=== PATIENT | male | born 1990 | race Caucasian/White ===

== ENCOUNTER 2016-06-17 08:34 | Day surgery (SDC) | payer OTHER, MEDICARE ==
[~2016-06-17] VITALS: Ht 180.3 cm; Wt 75.0 kg
--- NOTE | 2016-06-17 07:09 | PCM.HPANE ---
Patient Data Surgeon Admitting Provider: Attending Provider:Tricia Horton MD Primary Care Physician:Ernst Other Provider:Jemma Hollis Anesthesia Reason for Visit Dysphagia Ht/WT & BMI Body Mass Index Allergies Coded Allergies: No Known Allergies (Unverified Allergy, Unknown, 08/16/13) Diabetes History Hx Diabetes?: No Medications Discontinued Reported Medications Omeprazole 20 Mg Tablet.dr20 Mg PO DAILY 06/16/16 Discontinued Scripts Haloperidol Decanoate (Haldol Decanoate 100)100 Mg/1 Ml [id number] Mg IM UD antipsychotic #1 Ref 0 Haldol Decanoate IM Injection q 30 days. Prov:Byron Aguilar MD 09/03/13 Melatonin 1 Mg Tablet3 Mg PO HS PRN sleep 30 Days Prov:Byron Aguilar MD 09/03/13 [Benztropine Mesylate] (Cogentin)1 MG TABLET No Conflict Check1 Mg PO BID PRN AKATHESIA/MUSCLE RIGIDITY 30 Days Prov:Byron Aguilar MD 09/03/13 History Cardiovascular History: Denies:: Congestive Heart Failure Hypertension Respiratory History: Denies:: Tuberculosis Psycho Social History: Positive for:: Bipolar Disorder Hx Depression Denies:: Anxiety Suicide Attempt Hx Surgeries?: No Hx Diabetes: No Hx Alcohol Use: Yes ("OCCAS")Hx Substance Use: YesHave You Smoked inLast 12 mo : No Stop/Bang Risk Assessment Category Category 1A: Patient has history of documented sleep apnea, and HAS NOT received any narcotic, sedative or anesthesia administration during this stay. Category 1B: Patient has history of documented sleep apnea, and HAS received any narcotic , sedative or anesthesia administration during this stay Category 2: Patient has SUSPECTED Obstructive Sleep Apnea, and HAS received any narcotic , sedative or anesthesia administration during this stay. Category 3: Patient has SUSPECTED Obstructive Sleep Apnea and HAS NOT received narcotic, sedative or anesthesia administration during this stay. Category 4: Outpatient in Procedural Areas with known sleep apnea or who screen positive for High Risk via the STOP/BANG questionnaire. Exam Exam General Appearance: Alert, Oriented X3, Cooperative, No Acute Distress HEENT/AIRWAY: MP 2 Lungs: Clear to Auscultation, Normal Air Movement Heart: Exam Unremarkable, Regular Rate/Rhythm, No Murmurs/Rubs/Gallops Plan Impression Patient chart reviewed, patient interviewed and anesthestic plan with risks, benefits, and alternatives discussed, and informed consent obtained. ASA Physical Status: ASA2 Mod Systemic Disease Anesthetic Plan: MAC Bene/Risks/Altern/Consents: Yes HP Complete Prior to Induction: Yes Sona Gallardo MD Jun 17, 2016 07:09
[~2016-06-17 08:34] MED LIST: Benztropine Mesylate PO; HALO100A2 IM; Lactated Ringer's 1,000 ML IV ONE; MELA1TAB9 PO; OMEP20TA86 PO
[2016-06-17] MEDS ORDERED: Propofol 10,000 mCg/mL 20 mL Inj ONE (08:35)
[2016-06-17] MEDS ORDERED: fentaNYL-PF 50 mCg/mL 2 mL Inj ONE (08:35)
[2016-06-17 09:50] VITALS: BP 121/83; PULSE 65; RESP 12; O2SAT 99
[2016-06-17] MEDS ORDERED: Lactated Ringer's 1,000 ML IV SCH (11:12)
--- NOTE | 2016-06-17 11:12 | PCM.ANEP1 ---
Post Anesthesia Phase 1 PACU Phase 1 Assessment Vital Signs Vital Signs Date Time Temp Pulse Resp B/P Pulse Ox O2 Delivery O2 Flow Rate FiO2 06/17/16 09:50 65 12 121/83 99 Room Air Anesthetic Administered: MAC Level of Alertness: Awake, talking MORELAND's with Equal Strength: Yes Pain: No Oxygen Delivery: Nasal Cannula Lungs: Clear to Auscultation, Normal Air Movement Sona Gallardo MD Jun 17, 2016 11:12
[2016-06-17 11:14] VITALS: BP 124/69; PULSE 77; RESP 14; O2SAT 96
[2016-06-17] MEDS ORDERED: MetoCLOpramide 5 mg/mL 2 mL Inj IVPUSH PRN (11:15)
[2016-06-17] MEDS ORDERED: Ondansetron 2 mg/mL 2 mL Inj IVPUSH PRN (11:15)
--- NOTE | 2016-06-17 11:17 | PCM.ANEP2 ---
Post Anesthesia Evaluation ASA/CMS Post Anesthesia VS in Patient's Normal Range?: Yes Resp Stable; Airway Patent?: Yes CV Function & Hydration Stable: Yes Mental Status Recovered?: Yes Pain control Satisfactory?: Yes N/V Control Satisfactory?: Yes Sona Gallardo MD Jun 17, 2016 11:17
[2016-06-17 11:24] VITALS: BP 109/66; PULSE 85; RESP 16; O2SAT 96
--- NOTE | 2016-06-17 14:04 | ENDO ---
[address] [address] ENDOSCOPY PROCEDURE PATIENT: FARRAH HENAO : 1990 MR#: [id number] ADMIT: 06/17/2016 JOB ID: [id number] DATE: 06/17/2016 PROCEDURE: Esophagogastroduodenoscopy. INDICATION: Dysphagia. Patient's ASA classification, Mallampati score, and medications as per anesthesia note. INSTRUMENT USED: [id number]. PROCEDURE DETAILS: After informed consent was obtained, the patient was brought into the GI suite where he was placed on oxygen via nasal cannula and monitored with continuous pulse oximeter, telemetry, and blood pressure monitoring. A time-out was performed. Then, he was placed in a left lateral decubitus position and a bite block was placed. Medications were then administered for sedation. The standard esophagogastroduodenoscopy scope was inserted through the bite block and advanced under direct visualization to the second portion of duodenum without difficulty. FINDINGS: 1. In the duodenum, the mucosa had a slightly scalloped appearance suggestive of celiac disease. Multiple random biopsies were obtained. 2. Normal-appearing pylorus, antrum, and gastric body. 3. Retroflexed views of the gastric body revealed a normal-appearing cardia and fundus. 4. Normal-appearing GE junction with a regular Z-line at 42 cm. 5. Normal-appearing esophagus. 6. Multiple random biopsies were obtained in midesophagus secondary to patient's complaint of dysphagia. IMPRESSION: 1. Slightly irregular duodenal mucosa. Biopsies obtained to rule out celiac disease. 2. Otherwise normal exam. RECOMMENDATIONS: 1. Continue current medications. 2. Follow up in GI clinic in 2-4 weeks. COMPLICATIONS: None. ESTIMATED BLOOD LOSS: Less than 5 mL.
--- NOTE | 2016-06-18 15:45 | PATH ---
SURGICAL PATHOLOGY Attending Physician:Rodo Rene CASE STATUS: Signed Out PATIENT NAME: FARRAH HENAO PID: [id number] : 1990 DATE COLLECTED:06/17/2016 20:04 SPECIMEN: 1: Duodenum, Biopsy 2: Esophagus, Biopsy CLINICAL HISTORY: 1). DUODENUM BIOPSY 2). MID ESOPHAGEAL BIOPSY FINAL DIAGNOSIS: 1. Duodenum Biopsy: Duodenal mucosa with no diagnostic alterations. Negative for inflammation, celiac, dysplasia and malignancy. 2. Mid-esophageal Biopsy: Esophageal squamous mucosa with no diagnostic alterations. Negative for intestinal/Hickman's metaplasia. Negative for dysplasia and malignancy. ICD10 R10.13 GROSS DESCRIPTION: The specimen is received in two formalin filled containers labeled with the patient's name. 1). The specimen is sublabeled "duodenum" and consists of 5 portions of tissue which aggregate to 0.4 x 0.4 x 0.3 CM. The specimen is entirely submitted in cassette 1A. 2). The specimen is sublabeled "mid esophageal" and consists of 3 portions of tissue which aggregate to 0.3 x 0.3 x 0.2 CM. The specimen is entirely submitted in cassette 2A. 06/17/2016 [facility] MICRO DESCRIPTION: Please see diagnosis. ICD-9 CODES: CPT CODES: 1: 29389 2: 30959 Electronically Signed Out Juliet Grant MD [facility] [address], [place] [address] Technical component performed at [facility], [address], [place], [address]
== END 2016-06-17 23:59 | disposition home or self-care (01) ==
LOC: END 08:34
PROVIDERS: ATTEND Internal Medicine Gastroenterology
DX: R13.10 Dysphagia, unspecified (principal); K31.89 Other diseases of stomach and duodenum; K59.00 Constipation, unspecified; F25.9 Schizoaffective disorder, unspecified; K21.9 Gastro-esophageal reflux disease without esophagitis; F10.20 Alcohol dependence, uncomplicated; F17.210 Nicotine dependence, cigarettes, uncomplicated
CPT/HCPCS: 43239; J2250; J3010; J7120

== ENCOUNTER 2016-11-26 00:09 | Inpatient (IN) | payer MEDICARE, OTHER ==
[~2016-11-26] VITALS: Ht 182.9 cm; Wt 70.0 kg
[2016-11-26 00:20] VITALS: BP 128/77; PULSE 115; RESP 16; O2SAT 96
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
[2016-11-26] MEDS ORDERED: Haloperidol 5 mg/mL Inj ONE (04:22)
[2016-11-26 05:26] LABS: BASOPHILS % (AUTO) 0.1 % (0-3); EOSINOPHILS % (AUTO) 1.6 % (0-5); MONOCYTES % (AUTO) 10.6 % (4-12); Mean Corpuscular Hemoglobin 30.6 pg (27.0-35.0); Mean Corpuscular Volume 86.2 fL (81-100); NEUTROPHILS % (AUTO) 69.5 % (40-74); Platelet Count 215 bil/L (150-400)
[2016-11-26 06:34] VITALS: BP 130/79; PULSE 125; RESP 14; O2SAT 96
[2016-11-26 15:45] VITALS: BP 126/72; PULSE 89; RESP 12; O2SAT 98
[2016-11-26] MEDS ORDERED: Alum-Mag Hydrox-Simeth 30 mL Suspension PO PRN (16:45)
[2016-11-26] MEDS ORDERED: LORazepam 1 mg Tablet PO PRN (16:45)
[2016-11-26] MEDS ORDERED: Benzocaine-Menthol Lozenge 2/Pkg PO PRN (16:45)
[2016-11-26] MEDS ORDERED: Magnesium Hydroxide 10 mL Oral Concentration PO PRN (16:45)
--- NOTE | 2016-11-26 18:19 | NUR ---
[facility] Day Shift Pt admitted to the unit at approx 16:00. Pt declined to complete the admission paperwork, but has been directable and appropriate with staff and peers since admission. Pt spends most of the shift pacing the unit, attempting to engage in unit activities, and resting in his room. Pt is pleasant and appropriate with staff and peers when engaged. Pt occasionally appears guarded when engaged with staff. Pt attended dinner in the evening and ate approx 100% of meal.
--- NOTE | 2016-11-26 21:07 | NUR ---
ADMISSION NOTE 26 y/o male w/hx schizoaffective disorder admitted to unit @ 1600 from [facility] ED, SUMI'd on 72-hr hold. Pt. was calm but guarded and refused to participate in admission interview or signing his paperwork, telling this music writer "I'm gonna go take a shit if that's ok with you. I'm not doing this." Pt. wrote the statement "I do not want to be treated" on his consent to treat form. However, he was med compliant at and took his scheduled Haldol 5 mg and Cogentin 1 mg. Per ED records, the pt's father reported the pt. has been off his meds for "a long time" and was acting bizarrely and belligerent in the home that they share and was brought here by police. He apparently made suicidal statements to the police but has denied SI here at the hospital. Down in the ED, the pt. required seclusion b/c of risk of elopement and then later 4-point restraints d/t escalating behaviors and property destruction. The pt. has had at least 3 previous ITAs with his last admission here in August 2013. Pt's father reported the pt. has done well on Haldol in the past. Pt. denied pain, denied AH/VH/SI/HI.
--- NOTE | 2016-11-27 05:01 | NUR ---
NURSE NIGHT NOTE [id number]: Pt was in bed at the start of the shift, but got up a couple times in the night. Pt was appropriate when talking to staff. Pt monitored q15 minutes for location, safety and accountability.
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
[2016-11-27 16:22] VITALS: BP 119/74; PULSE 83; RESP 16
--- NOTE | 2016-11-27 16:44 | NUR ---
[id number]. nurs. S: "I think if I go off haldol I can go 'bonkers'" O: Pt out on unit reporting tired but able to find things to do on unit and rest. Pt reporting living at home with family but wants to find his own place, pt reporting that situation at home precip. admit had occurred because his family were not helping him to find some friends he was worried about who were missing, homeless and camping out. 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 Pt appearing to have some insight into benefit of being on medication although not clearly acknowleging pxs he has experienced with his functioning. Pt taking meds as prescribed. P:CNCP
--- NOTE | 2016-11-27 18:08 | NUR ---
Legislative Analyst/Counselor S:"I'm here because I didn't feel safe." O: Patient denies any SI or HI, no AVH, rated his anxiety at at 2, and his depression at a 1. A: Patient is cordial and pleasant. Limited insight. Participated in group, and has been interactive on the unit. P: Follow care plans and coordinate with outpatient providers.
--- NOTE | 2016-11-27 18:16 | NUR ---
[facility] Day Shift Pt maintained behavioral control throughout the shift. Pt affect appears mostly euthymic, occasionally guarded. Pt spends most of the shift looking for ways to stay occupied, interacting lightly with staff and peers, and pacing the unit. Pt occasionally appears restless. Pt is pleasant with staff and peers when active on the unit. Pt attended community meeting in the AM and lightly participated in group activities throughout the shift. Pt attended all meals and ate approx 100% of all meals.
--- NOTE | 2016-11-28 05:40 | NUR ---
Nursing Noc Patient taking medications as directed, but noted to be hesitant to accept PRNs available for sleep. Pt out after short perios to request sleep aid. Pt noted to have broken sleep. Pleasant cooperative and interacting appropriately with staff and patients. Continuing to monitor mood, behavior, and emotional state. Q15 minutes safety checks performed throughout the night.
--- NOTE | 2016-11-28 12:22 | NUR ---
[id number]. nurs. S: "I have drowsiness do you think that will wear off.. 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 Pt reporting that he had positive visit with mo. and bro. last night. Pt reporting that he hoped to be able to discharge tomorrow and get back to work. Pt stating he would talk to Dr about drowsy state and possible duration of this s/e. Pt reporting in addition to not being able to smoke he liked to be active and did not like sitting around. MHA stating that he would offer ball sports in afternoon. A: Pt pleasant, with calm controlled behaviour, without much interaction with others and some ambivalence re need and benefits of meds. desiring discharge, to discuss med regimen with . Pt states has good plan of taking meds when alarm wakes him for work. P:CNCP
--- NOTE | 2016-11-28 13:55 | PCM.PNPSY ---
Subjective Date of Service Nov 28, 2016 Subjective I spent 30 minutes both reviewing treatment plan with our clinical team, interviewing the patient and providing supportive/educational psychotherapy. I spent more than 50% of the time counseling the patient. I reviewed the treatment plan with the him and discussed options available including the potential risks, benefits and side effects. Chauncey reports a marked improvement in thought organization and mood stability. Staff reports that he has been active and participating well in one-to-one unit and group activities. He slept 6 hours and denies depression or psychotic symptoms review. He denies medication side effects. He was able to identify his medications and what they were used to treat. Current Medications Current Medications Benztropine Mesylate 1 mg BID PO Last administered on 11/28/16 07:52; Admin Dose 1 MG; Start 11/26/16 at 20:30 Haloperidol 5 mg BID PO Last administered on 11/28/16 07:52; Admin Dose 5 MG; Start 11/26/16 at 20:30 Haloperidol 5 mg ONCE ONCE PO Last administered on 11/26/16 14:34; Admin Dose 5 MG; Start 11/26/16 at 14:00; Stop 11/26/16 at 14:01; Status DC Zolpidem Tartrate Start with 5 mg and july rep... HS PRN PO Last administered on 11/27/16 22:09; Admin Dose 5 MG; Start 11/26/16 at 16:45 Mental Status Exam Appearance: Neat/well groomed Attitude: Pleasant, Cooperative Behavior: No unusual behavior Affect: Well Modulated/Appropriate Mood: Euthymic Thought Process/Associations: Logical/Sequential, Goal Directed Speech Production: Normal Speech Rate: Normal Speech Articulation: Normal Thought Content: Appropriate Danger to Self/Suicidal Ideati: None Danger to Others: None Consciousness: Alert Orientation: Person, Place, Date, Situation Memory: Grossly Intact Estimate Intellectual Function: Average Basis for IQ estimate: Awareness current events, Word use/vocabulary, Educational history, Employment history Attention/Concentration & Cogn: Grossly Intact Cognitive Testing Method: Abstract Reasoning during interview, Proverb interpretation, Serial computations, Spelling forward & backward Insight: Good Judgement: Limited Result Diagram: 11/26/1651611/26/16516 Mental Health Plan The patient is a 26-year-old, white male, who has been struggling with symptoms of schizoaffective disorder, both chicho symptoms and psychotic symptoms, for the past five years. He has been off medications since January 2016 and states Haldol was really what has been helping him. He did not want to start a mood stabilizer nor refrain from recreational drugs such as THC. The reports that prior to admission to our unit was that he was delusional, nonsensical, responding to internal stimuli, and hallucinating. He received involuntary neuroleptics in the emergency department and is currently taking Haldol 5 mg twice a day. Client is gainfully employed and very proud of this fact. He has a close-knit and supportive family. He is a very proud young man and wants to be stabilized and discharged as soon as possible. Today he appeared with good thought organization And is showing markedly improved judgment and impulse control. [place] I. Schizoaffective disorder. [place] II. Defer. [place] III. None. [place] IV. Moderate. [place] V. Current Global Assessment of Functioning equal to 40 Treatments Patient is being provided with a high degree of safety through our unit structure and active adult engagement provided by our mental health professionals, mental health technicians, psychiatric nurses and myself. We are focusing on developing improved coping skills and identifying stressors that may have led to current episode. We will attempt to: * Integrate into therapeutic groups, milieu and individual therapy. * Maintain in a closely monitored and structured unit * Provide low-stimulation environment * Obtain collateral data to assist in treatment planning * Assess degree of lability of affect and impulse control * Complete safety plan * Decrease frequency of relapse and need for re-hospitalization * Denies thoughts of harm to self and/or others * Establish a consistent sleep pattern * Medication effective in stabilization of mood and/or thought process * Reduce the risk of imminent harm to self and/or others by providing a safe environment * Tolerates medication without side effects Patient will be on the following psychiatric medications: Haldol 5 mg twice a day Cogentin 1 mg twice a day Education: Educate patient about recreational drug use as an etiology Educate about metabolic etiologies related to obesity Patient's legal status Patient is on a 72 involuntary treatment hold. Patient will be given the opportunity to talk to her heel seam rubber and the library science professor Anticipated number of hospital days to achieve above goals: 3 Disposition: Home Jose M Tidwell MD Nov 28, 2016 13:55
[2016-11-28 16:36] VITALS: BP 121/71; PULSE 66; RESP 16
--- NOTE | 2016-11-28 17:52 | NUR ---
[facility] Day Shift Pt affect and behavior unchanged from previous shifts. Pt maintained behavioral control throughout the shift. Pt affect appears mostly euthymic, occasionally guarded. Pt spends most of the shift looking for ways to stay occupied, interacting lightly with staff and peers, and pacing the unit. Pt occasionally appears restless. Pt is pleasant with staff and peers when active on the unit. Pt attended community meeting in the AM and participated in group activities throughout the shift. Pt attended all meals and ate approx 100% of all meals.
--- NOTE | 2016-11-28 18:07 | NUR ---
Accounts Adjustable Clerk/Counselor S:"I want to go back to work." O: Patient denies any SI or HI, no AVH, rated his anxiety at at 2, and his depression at a 1-2. A: Patient is cordial and pleasant. Limited insight, poor judgment. Participated in group on and off,and has been interactive on the unit. Slept for 5.5hrs. P: Follow care plans and coordinate with outpatient providers.
[2016-11-29] MEDS: hydrOXYzine Pamoate 25 mg Capsule PO PRN ×2 (04:38→22:39)
--- NOTE | 2016-11-29 05:07 | NUR ---
Nursing, NOC shift Patient visible on unit, ambulating hallways with steady gait. PRN Ambien given at HS, PRN Vistaril given at 0430. Continue Q15 min safety and room checks thru the NOC.
--- NOTE | 2016-11-29 14:52 | NUR ---
Nursing Days Pt asking when he can go. He has been using the phone to call family. Spending time out on the unit visiting with a female peer. Taking medication as scheduled. No complaints.
--- NOTE | 2016-11-29 17:24 | PROG NOTE ---
[address] [address] PROGRESS NOTE PATIENT: FARRAH HENAO : 1990 MR#: [id number] ADMIT: 11/26/2016 JOB ID: [id number] DATE: 11/29/2016 CHIEF COMPLAINT: "I knew that I needed to be back on medicine, I have cut back on my marijuana and other stuff." HISTORY OF PRESENT ILLNESS: As stated above, the patient is a 26-year-old male who openly admitted to significant usage of substances including marijuana, with previous identification of usage of Salvia and Spice. The patient is well known to myself with two separate hospitalizations in 2013. He reportedly has a previous history of treatment with doses of Risperdal but is currently prescribed doses of Haldol at his own request. He indicated that previously he had been seen by Dr. Joyner, an outpatient psychiatrist, for many years for diagnoses including psychoses, possible schizoaffective disorder. He indicated that he had never shared with Dr. Joyner until recently that he had been using other substances beginning at the age of 19. He indicated that he consistently used both Spice and Salvia on a daily basis for a period of approximately five years and elected to discontinue doses of Salvia and Spice in 2013 with his last admission. He reports that recently he had experimented with other substances, but is unclear the specifics. He indicated that he had been using marijuana 1-2 times per day to every other day. He is currently employed and living in the home environment with his mother and father and additional sibling brothers. He reports that he is working anywhere from 10-12 hour days at a local [employer] and is hoping to actually go back to [employer] to obtain his ASA certification. 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 He currently denies any usage of alcohol on a consistent basis, indicating that his brother got about a month ago and he had a few drinks. He currently identifies that he is willing to continue with his current dose regimens of Haldol and Cogentin. He identified some significant difficulties with sedation but otherwise denied any other side effects. MENTAL STATUS EXAM: He was cooperative, polite. He was dressed in scrubs. He was age-appropriate in his appearance, demeanor and interaction. His speech is of normal tone, frequency, and volume. His mood is neutral. Affect was congruent. His thought process showed no evidence of racing thoughts, flight of ideas, loose or disorganized thinking. He indicated that the doses of Haldol had certainly cleared up his thoughts. He identified that he was having confusing and perpetuating thoughts, but did not identifying feelings of paranoia. His thought content: He denied any evidence of current suicidal, homicidal ideation. No evidence of paranoia. He admits to hearing voices prior to his admission. Denied any visual hallucinations. He was alert, oriented to time and place. Attention and concentration intact. Insight and judgment are fair to poor. PHYSICAL EXAM: Vital signs are current. Temperature is 36.1, pulse 66, respirations 16, BP 121/71. MEDICATION REVIEW: 1. Haldol 5 mg b.i.d. 2. Cogentin 1 mg b.i.d. 3. Hydroxyzine 50 mg q.4 h. p.r.n. ASSESSMENT: [place] I1. Schizoaffective disorder, by history. 2. Psychotic disorder, not otherwise specified. 3. Cannabis use disorder, severe, chronic. 4. History of polysubstance use disorder. [place] IIDeferred. [place] IIINone. [place] IVStressors are noted for chronic substance use, recent noncompliance with medication management. [place] VGlobal assessment of functioning 35. PLAN: 1. Recommendation is for probable discharge tomorrow. Patient has agreed to continue with medication interventions and agrees to follow up with [facility]. 2. Continuation of all medications as noted.
--- NOTE | 2016-11-29 17:59 | NUR ---
Nutrition Manager/Counselor S:"I'm feeling drowsy." O: Patient denies any SI or HI, no AVH, no anxiety or depression. A: Patient has been pleasant and cooperative. Somewhat limited insight still, but improving. He is planning to return to his parent's home. P:Follow care plan and coordinate with outpatient providers.
[2016-11-29 19:07] VITALS: BP 112/74; PULSE 55; RESP 18
--- NOTE | 2016-11-29 23:07 | NUR ---
Nurses Note Evening Patient remained in the alphonse room,appropriately social with peers. His thoughts generally clear,organized with underlying anxiety at times. Patient c/o that his vision was blurry,will relay information to night RN to pass on to am MD report. He is eager to return to work and excited about the new job. Continue to reinforce importance of medication compliance and follow -up with out patient provider. Addendum: 11/29/16 at 2311 by MARILYN BLAKE RN Amended: Links added.
--- NOTE | 2016-11-30 02:29 | NUR ---
Observations 1900 to 0700 Pt attended and participated in wrap up group. Pt ate a snack. Pt spends free time working on a puzzle with a peer or in the group room. Pt is pleasant and cooperative. Pt maintained behavioral control and showed no signs of abnormal behavior. Pt is observed pacing unit reporting having a difficult time falling asleep. Ear plugs were offered, pt declined. Pt appeared asleep at 2300 and has remained asleep. Pt respirations were observed when asleep. Staff completed 15 min close observations as ordered.
--- NOTE | 2016-11-30 04:23 | NUR ---
Nursing Note Ham Stripper 11pm to 7am Pt asleep at start of shift and remained asleep for the duration. No issues reported or observed Monitored pt. with q 15 minute face checks for safety location and accountability
--- NOTE | 2016-11-30 08:51 | NUR ---
Medication "This medication is making my mouth dry out a lot. I don't like it. I want to take it all at night." Pt took his morning medication but made previous statement. He was encouraged to talk to the doctor about his dry mouth and the time he takes his medication. He was offered but declined Cepacol lozenge for his dry mouth.
--- NOTE | 2016-11-30 09:34 | PCM.DIMED ---
Discharge Instructions Date of Service Nov 30, 2016 Dates of Hospitalization Nov 26, 2016 at 15:56 Discharge Diagnosis Discharge Diagnosis Schizoaffective DO bipolar type by Hx Cannabis Use DO severe chronic Polysubstance use disorder Diet Discharge Diet: No restrictions Activity Discharge Activity: No restrictions Tre Phan DO Nov 30, 2016 09:34
[2016-11-30] MEDS ORDERED: HYDR50TA76 PO (09:39)
[2016-11-30] MEDS ORDERED: HAL5 PO (09:39)
[2016-11-30] MEDS ORDERED: BENZ1TAB7 PO ×2 (09:39→10:31)
--- NOTE | 2016-11-30 11:22 | NUR ---
Sheltered Workshop Executive Director/Counselor S:"I'm going back to my parent's for now." O:Patient denies any SI or HI, no AVH, no anxiety or depression. A: Patient has been pleasant and cooperative this morning and is waiting for discharge. He has follow up appts with [facility] on 12/06/2016. He will return to his parents house who are happy to see him return home. Patient stated he is ready to get back into a routine and go back to work. P: Follow discharge plan.
--- NOTE | 2016-11-30 14:28 | NUR ---
Nursing Discharge Note: Patient cooperative with discharge process. Acknowledges understanding of d/c instructions and has a copy with them upon leaving unit at 1107. Belongings accounted for and with patient. Prescriptions faxed to patients pharmacy at [facility] in [place]. Patient denies harmful thoughts and hallucinations at this time.
--- NOTE | 2016-11-30 14:29 | DIS ---
[address] [address] DISCHARGE SUMMARY PATIENT: FARRAH HENAO : 1990 MR#: [id number] ADMIT: 11/26/2016 JOB ID: [id number] DIS: 11/30/2016 ADMITTING DIAGNOSES: Include: [place] I. 1. Schizoaffective disorder, bipolar type by history. 2. Cannabis use disorder, severe, chronic. 3. Polysubstance use disorder. [place] II. Deferred. [place] III. None. [place] IV. Moderate. [place] V. Global Assessment of Functioning current 35. DISCHARGE DIAGNOSIS: Include: [place] I. 1. Schizoaffective disorder, bipolar type by history. 2. Cannabis use disorder, severe, chronic. 3. Polysubstance use disorder. [place] II. Deferred. [place] III. None. [place] IV. Stressors are consistent for recurrent usage of substances, limited support system. [place] V. Global Assessment of Functioning current 45. REASON FOR ADMISSION: Patient was a 26-year-old male admitted with significant features of chicho, psychoses, with prior history of multiple admissions in 2011, 2013. During the course of hospitalization, the patient agreed to reinitiate doses of Haldol 5 mg b.i.d. with additions of Cogentin 1 mg b.i.d. Throughout hospital course, patient did had evidence of clearing of his thought process indicating that he was much more able to consistently concentrate and that he did not have clogged thoughts any longer. He initially identified that he had been using marijuana, anywhere from 1-2 times per day consistently over the past eight years, but also admitted with previous admissions that he had not revealed additional usage including Spice and Salvia. The patient states that his last usage of Salvia and Spice was in 2013 with his last admission. He indicated that he recalled myself from that admission and stated that he knew that he needed to discontinue the previous usage, stating that it was making him crazy. He reportedly did have previous involvement with [facility], and stated that he is not currently connected with support services. During the course of hospitalization, the patient identified a willingness to engage in therapeutic interventions through [facility]. He indicated that he was willing to continue on his medications but experienced significant side effects including dry mouth, dizziness, and some difficulties with distorted vision. He agreed to decrease his dose of Cogentin to 0.5 mg b.i.d. at the point of discharge. CONDITION AT TIME OF DISCHARGE: On patient's mental status exam, he was bright, cooperative, interactive. He denied any evidence of acute distress. His speech was of normal tone, frequency, and volume. He denied any evidence of current suicidal, homicidal ideation. No evidence of active hallucinations, delusions. He was alert, oriented to time and place. Attention and concentration intact. Memory intact in the short term, shelter, recent. Insight and judgment are fair. DISCHARGE PLANS: Include: 1. Follow up with [facility], December 06, for intake at 8:30. 2. Continuation of medications including: a. Haldol 5 mg b.i.d., one month supply, no refills. Reason for usage: Antipsychotic. b. Cogentin 0.5 mg b.i.d., one month supply, no refills. Reason for usage: EPS. c. Vistaril 50 mg t.i.d. p.r.n., one month supply, no refills. Reason for usage: Anxiety. MTDD
== END 2016-11-30 11:07 | disposition home or self-care (01) | DRG 885 ==
LOC: SED 00:09 → MHC 15:56
PROVIDERS: ADMIT Psychiatry & Neurology Psychiatry; ATTEND Psychiatry & Neurology Psychiatry
DX: F25.0 Schizoaffective disorder, bipolar type (principal); R45.851 Suicidal ideations; F12.90 Cannabis use, unspecified, uncomplicated; F10.10 Alcohol abuse, uncomplicated; Z91.19 Patient's noncompliance with other medical treatment and regimen